=== PATIENT | female | born 1945 | race Caucasian/White ===

== ENCOUNTER 2017-01-13 08:13 | Day surgery (SDC) | payer OTHER, MEDICARE ==
[2017-01-10 17:06] VITALS: BMI 18.7
[2017-01-13] MEDS ORDERED: PROPOFOL 20 ML ONE (08:36)
[2017-01-13 10:23] VITALS: TEMP 98
[2017-01-13 11:14] VITALS: BP 107/64; PULSE 68
== END 2017-01-13 11:14 | disposition home or self-care (01) ==
LOC: FASU-ENDO 08:13
PROVIDERS: ATTEND Internal Medicine Gastroenterology
PROC: 0DJD8ZZ Inspection of Lower Intestinal Tract, Via Natural or Artificial Opening Endoscopic (ICD-10-PCS; principal; 2017-01-13 09:42)
DX: Z12.11 Encounter for screening for malignant neoplasm of colon (principal); K64.4 Residual hemorrhoidal skin tags; K64.8 Other hemorrhoids

== ENCOUNTER 2017-08-22 17:28 | Emergency (ER) | payer OTHER, MEDICARE ==
[2017-08-22 20:03] VITALS: BP 139/79; PULSE 75; TEMP 98.2; BMI 18.6
--- NOTE | 2017-08-22 21:34 | PDOC ---
History of Present Illness <Yobany Reina - Last Filed: 08/22/17 21:51> - History of Present Illness Initial Comments: This 72-year-old woman with a history of SVT( ablation 2013) but no other significant past medical history presents with episode of falling with head injury yesterday. At approximately 10:30 PM last night, patient was reading at her kitchen table when she fell asleep. She fell striking her forehead and face against the floor. She awakened immediately and her who was in the adjoining room was at her side immediately. There was no loss of consciousness or seizure activity/incontinence. Patient was able to get up and ambulate immediately. At the time, she had some discomfort in the right side of her forehead and she dislodged the near of her right upper central incisor. She is able to sleep normally overnight and this morning drove herself to the dentist for repair of the tooth. Throughout the day today, she had increased headache/pain in the area of her right forehead. No other associated symptoms of nausea/vomiting/lightheadedness/vision or balance problems occurred. <Isabelle Alexander - Last Filed: 08/23/17 03:13> - General Chief Complaint: Injury Stated Complaint: FELL OF CHAIR HIT HEAD Time Seen by Provider: 08/22/17 19:15 Past History <Yobany Reina - Last Filed: 08/22/17 21:51> - Past Medical History Anemia: No Asthma: No Cancer: No Cardiac Disorders: Yes (H/O SVT 2012) CVA: No COPD: No CHF: No Dementia: No Diabetes: No GI Disorders: No Disorders: No HTN: No Hypercholesterolemia: No Liver Disease: No Seizures: No Thyroid Disease: No - Surgical History Abdominal Surgery: No Appendectomy: No Cardiac Surgery: No (ABLATION 2013) Cholecystectomy: No Lung Surgery: No Neurologic Surgery: No Orthopedic Surgery: No - Immunization History Td Vaccination: No - Suicide/Smoking/Psychosocial Hx Smoking Status: No Smoking History: Never smoked Years of Tobacco Use: 0 Number of Cigarettes Smoked Daily: 0 Cigars Per Day: 0 Hx Alcohol Use: Yes Drug/Substance Use Hx: No Substance Use Type: Alcohol <Isabelle Alexander - Last Filed: 08/23/17 03:13> - Past Medical History Allergies/Adverse Reactions: Allergies Allergy/AdvReac Type Severity Reaction Status Date / Time No Known Allergies Allergy Verified 08/22/17 17:29 Home Medications: Ambulatory Orders Flecainide Acetate 50 mg PO BID tablet 07/12/15 Diltiazem Cd [Cardizem Cd -] 120 mg PO HS 01/10/17 Ibuprofen [Advil -] 400 mg PO PRN PRN 08/22/17 Review of Systems - Review of Systems Able to Perform ROS?: Yes Comments:: 12 point review of systems is negative except for what is noted in the history of present illness <Isabelle Alexander - Last Filed: 08/23/17 03:13> *Physical Exam - Vital Signs Last Vital Signs Temp Pulse Resp BP Pulse Ox 98.2 F 75 16 139/79 99 08/22/17 17:29 08/22/17 17:29 08/22/17 17:29 08/22/17 17:29 08/22/17 17:29 <Yobany Reina - Last Filed: 08/22/17 21:51> - Vital Signs Last Vital Signs Temp Pulse Resp BP Pulse Ox 98.2 F 75 16 139/79 99 08/22/17 17:29 08/22/17 17:29 08/22/17 17:29 08/22/17 17:29 08/22/17 17:29 - Physical Exam Comments: GENERAL:Adult female , alert and oriented X3 in NAD HEAD:moderate tenderness/moderate edema, faint ecchymosis 3 cm X 3 cm R frontal area EYES: PERRLA, EOMI, sclera anicteric, conjunctiva clear. ENT: nares patent, oropharynx clear without exudates. Temporary cap on upper central right incisor NECK: No masses, mild tenderness, no bruits . LUNGS: Breath sounds equal, clear to auscultation bilaterally. No wheezes, and no crackles. NEUROLOGICAL: Cranial nerves II through XII grossly intact. Normal speech. No focal neurological deficits. <Isabelle Alexander - Last Filed: 08/23/17 03:13> ED Treatment Course - RADIOLOGY Radiograph Interpretation: 08/22/17 21:51 EXAM: CT Cervical Spine INTERPRETED BY: Dr. Fernandes REVIEWED BY: Dr. Alexander IMPRESSION: 1. No evidence of acute fracture in the cervical spine. 2. Mild anterolisthesis at all levels from C5 on C6-T1 on T2 is presumably chronic and degenerative. 3. Cervical spondylosis. EXAM: CT Facial bones INTERPRETED BY: Dr. Fernandes REVIEWED BY: Dr. Alexander IMPRESSION: No evidence of acute facial bone fracture. Small soft tissue hematoma overlying the right frontal bone. EXAM: Head CT INTERPRETED BY: Dr. Fernandes REVIEWED BY: Dr. Alexander IMPRESSION: No evidence of acute intracranial hemorrhage or calvarial fracture. No mass effects or hydrocephalus. <Yobany Reina - Last Filed: 08/22/17 21:51> - RADIOLOGY Radiology Studies Ordered: Category Date Time Status CERVICAL SPINE CT W/O CONTR [CT] Stat CT Scan 08/22/17 19:[address] W/O CONTRAST [CT] Stat CT Scan 08/22/17 19:[address] WITHOUT CONTRAST [CT] Stat CT Scan 08/22/17 19:44 Completed <Isabelle Alexander - Last Filed: 08/23/17 03:13> Medical Decision Making - Medical Decision Making CT studies show no evidence of acute pathology as noted. Patient discharged with instructions to keep her head elevated and to use Tylenol for the next 24 hours. After that, she can use nonsteroidal anti- inflammatory medications as needed. She should follow up with Dr. Addison ; she should return to the emergency room if she has severe headache or develops associated symptoms. <Isabelle Alexander - Last Filed: 08/23/17 03:13> *DC/Admit/Observation/Transfer - Attestations Scribe Attestion: 08/22/17 21:52 Documentation prepared by Yobany Reina, acting as medical services manager for Isabelle Alexander MD. <Yobany Reina - Last Filed: 08/22/17 21:51> <Isabelle Alexander - Last Filed: 08/23/17 03:13> Diagnosis at time of Disposition: Forehead contusion Qualifiers: Encounter type: initial encounter Qualified Code(s): S00.83XA - Contusion of other part of head, initial encounter Closed head injury Qualifiers: Encounter type: initial encounter Qualified Code(s): S09.90XA - Unspecified injury of head, initial encounter - Discharge Dispostion Disposition: HOME Condition at time of disposition: Good - Patient Instructions Printed Discharge Instructions: DI for Closed Head Injury Additional Instructions: keep head elevated tonight can continue cold compresses to forehead for next day tylenol for pain for next day, then ibuprofen/naproxen as needed return to ER if you develop severe headache/lightheadedness/vomiting Follow-up with Dr. Addison within the next 5-7 days
== END 2017-08-22 21:45 | disposition home or self-care (01) ==
LOC: FER 17:28
DX: S00.83XA Contusion of other part of head, initial encounter (principal); S09.90XA Unspecified injury of head, initial encounter; W07.XXXA Fall from chair, initial encounter; Y93.89 Activity, other specified; Y92.9 Unspecified place or not applicable
CPT/HCPCS: 70450-TC; 70486-TC; 72125-TC; 99281-25

== ENCOUNTER 2020-03-24 15:50 | Emergency (ER) | payer OTHER, MEDICARE ==
--- OUTSIDE RECORDS SUMMARY | 2020-03-24 16:00 | XMS ---
:1945 Author Organization [facility] Care Team Providers Name Role Phone YEISON GLYNN Unavailable Unavailable AREN ENGEL Unavailable Unavailable Re-disclosure Warning The records that you are about to access may contain information from federally- assisted alcohol or drug abuse programs. If such information is present, then the following federally mandated warning applies: This information has been disclosed to you from records protected by federal confidentiality rules (42 CFR part 2). The federal rules prohibit you from making any further disclosure of this information unless further disclosure is expressly permitted by the written consent of the person to whom it pertains or as otherwise permitted by 42 CFR part 2. A general authorization for the release of medical or other information is NOT sufficient for this purpose. The Federal rules restrict any use of the information to criminally investigate or prosecute any alcohol or drug abuse patient.The records that you are about to access may contain highly sensitive health information, the redisclosure of which is protected by Article 27-F of the [facility] Public Health law. If you continue you may haveaccess to information: Regarding HIV / AIDS; Provided by facilities licensed or operated by the [facility] Office of Mental Health; or Provided by the [facility] Office for People With Developmental Disabilities. If such information is present, then the following [facility] mandated warning applies: This information has been disclosed to you from confidential records which are protected by state law. State law prohibits you from making any further disclosure of this information without the specific written consent of the person to whom it pertains, or as otherwise permitted by law. Any unauthorized further disclosure in violation of state law may result in a fine or skilled nursing sentence or both. A general authorization for the release of medical or other information is NOT sufficient authorization for further disclosure. Encounters Encounter Providers Location Date Indications Data Source(s ) Outpatient Attender: TORO 10/15/2019 I47.1 R07.9 Z01.84 [facility] HUMAYUNAdmitter: 04:03:00 PM [facility] [employer] HUMAYUNReferrer: AREN ENGEL I47.1 R07.9 Z01.84 Outpatient Attender: RENARD 10/15/[address] [facility] YEISONAdmitter: RENARD, 06:00:00 AM EDT [address] [facility] YEISONReferrer: Loretta GLYNN R07.9 I47.1 [id number] Insurance Providers Payer name Policy type Policy ID Covered Covered constitution party's Policy P angeline / Coverage constitution party ID relationship to [employer] Inf ormation type trimble [facility] [id number] SP [id number] [employer]ARE [employer] MEDICARE [id number] SP [id number] [facility] [id number] 1 [id number] [place] [id number] PART B DOWNSTATE AARP MEDICARE [id number] 1 [id number] SUPP[place] [id number] PART B [facility] [id number] PT [id number] [employer] MEDICARE [id number] PT [id number] Problems, Conditions, and Diagnoses Code Display Name Description Problem Type Effective Data Sour ce(s) Dates I47.1 Supraventricular SUPRAVENTRICULAR [facility] [place] [facility]03:[facility] I77.810 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
--- NOTE | 2020-03-24 17:00 | TELE ---
HPI Do you have fever,cough or shortness of breath?: Yes (74-year-old female presents via tele-health for COVID testing. Patient with low-grade temperature of 99.5 along with body aches, dry cough, and malaise for the past 2 days. Patient denies any recent sick contacts recent travel or smoking history. Patient denies medical history) - General Reason For Visit: COVID History Source: Patient Exam Limitations: No Limitations - History of Present Illness Severity: reports: mild Associated Symptoms: reports: cough, fever/chills, malaise, weakness Past History - Travel History Traveled outside of the country in the last 30 days: No Close contact w/someone who was outside of country & ill: No - Medical History Allergies/Adverse Reactions: Allergies Allergy/AdvReac Type Severity Reaction Status Date / Time No Known Allergies Allergy Verified 08/22/17 17:29 Home Medications: Ambulatory Orders Flecainide Acetate 50 mg PO BID tablet 07/12/15 Diltiazem Cd [Cardizem Cd -] 120 mg PO HS 01/10/17 Ibuprofen [Advil -] 400 mg PO PRN PRN 08/22/17 Anemia: No Asthma: No Cancer: No Cardiac Disorders: Yes (H/O SVT 2012) CVA: No COPD: No CHF: No Dementia: No Diabetes: No GI Disorders: No Disorders: No HTN: No Hypercholesterolemia: No Liver Disease: No Seizures: No Thyroid Disease: No - Surgical History Abdominal Surgery: No Appendectomy: No Cardiac Surgery: No (ABLATION 2013) Cholecystectomy: No Lung Surgery: No Neurologic Surgery: No Orthopedic Surgery: No - Immunization History Td Vaccination: No - Psycho-Social/Smoking History Patient Lives Alone: No Lives with/in: spouse/SO Smoking Status: No Smoking History: Never smoked Years of Tobacco Use: 0 Number of Cigarettes Smoked Daily: 0 Cigars Per Day: 0 Review of Systems - Review of Systems Able to Perform ROS?: No Limited Sudanese proficient: No Constitutional: No: Symptoms Reported Respiratory: Yes: Cough Cardiac (ROS): No: Symptoms Reported ABD/GI: No: Symptoms Reported Musculoskeletal: Yes: Joint Pain Integumentary: No: Symptoms Reported Neurological: Yes: Weakness *Physical Exam - Physical Exam General Appearance: Yes: Nourished, Appropriately Dressed. No: Apparent Distress HEENT: positive: EOMI Neck: negative: Decreased range of motion Respiratory/Chest: negative: Respiratory Distress Gastrointestinal/Abdominal: negative: Distended Integumentary: positive: Normal Color Neurologic: positive: Motor Strength 5/5 (Ambulatory) - Medical Decision Making 03/24/20 17:09Chief complaint: Patient requesting cover testing due to URI symptoms. Exam: Limited but otherwise normal Plan: COVID and influenza swab ordered Discharge Diagnosis at time of Disposition: Cough - Referrals Follow-up Referral(s): Juan Addison MD [Primary Care Provider] - - Patient Instructions - Discharge Disposition: HOME Condition at time of Disposition: Good
== END 2020-03-24 17:05 | disposition home or self-care (01) ==
LOC: JVIRT 15:50
DX: Z03.818 Encounter for observation for suspected exposure to other biological agents ruled out (principal)
CPT/HCPCS: 87804; C9803; Q3014-GT; U0003

== ENCOUNTER 2021-05-26 13:27 | Emergency (ER) | payer OTHER, MEDICARE ==
[2021-05-26 13:36] VITALS: TEMP 97.9; BMI 18.5
[2021-05-26] MEDS ORDERED: ONDANSETRON 4 MG/2 ML VIAL IVPUSH ONE (13:45)
[2021-05-26] MEDS ORDERED: SODIUM CHLORIDE 0.9% 500 ML INFUS.BAG IV ONE ×3 (13:45→18:06)
[2021-05-26] MEDS ORDERED: FAMOTIDINE 20 MG/50 ML IVPB 20 MG/50 ML MG IVPB ONE ×2 (13:45→13:50)
[2021-05-26] MEDS ORDERED: ONDANSETRON 4 MG/2 ML VIAL ONE (13:50)
[2021-05-26 14:46] LABS: ALBUMIN 4.5 g/dl (3.4-5.0); BILIRUBIN,TOTAL 1.6 mg/dl (0.2-1); CALCIUM 9.2 mg/dl (8.5-10); CREATININE 0.8 mg/dl (0.55-1.3); TOT PROT 7.8 g/dl (6.4-8.2)
[2021-05-26] MEDS ORDERED: ACETAMINOPHEN 1000 MG/100 ML VIAL IVPB ONE (15:26)
[2021-05-26] MEDS ORDERED: ACETAMINOPHEN INJECTION 100 ML IVPB ONE (15:36)
[2021-05-26 16:08] LABS: BASO % 0.2 % (0-2.0); EOS % 0.1 % (0-4.5); HEMATOCRIT 41.3 % (32.4-45.2); LYMPH % 2.4 % (8-40); MCH 32.4 pg (25.7-33.7); MEAN CELL VOLUME 95.3 fl (80-96); MEAN PLT VOLUME 8.8 fl (7.5-11.1); MONO % 2.8 % (3.8-10.2); NEUT % 94.5 % (42.8-82.8); PLATELET COUNT 187 10^3/uL (134-434); RBC 4.33 M/mm3 (3.60-5.2); RDW 13.8 % (11.6-15.6); WHITE BLOOD COUNT 7.9 K/mm3 (4.0-10.0)
[2021-05-26 16:49] LABS: ANISOCYTOSIS 1+; MACROCYTOSIS 0; PLATELET ESTIMATE NORMAL
[2021-05-26] MEDS ORDERED: SODIUM CHLORIDE 0.9% 1000 ML INFUS.BAG IV ONE ×2 (17:18→18:19)
[2021-05-26 18:29] VITALS: BP 140/86; PULSE 82
== END 2021-05-26 18:36 | disposition home or self-care (01) ==
LOC: FER 13:27
PROC: 3E0333Z Introduction of Anti-inflammatory into Peripheral Vein, Percutaneous Approach (ICD-10-PCS; principal; 2021-05-26)
PROC: 3E033GC Introduction of Other Therapeutic Substance into Peripheral Vein, Percutaneous Approach (ICD-10-PCS; 2021-05-26)
PROC: 3E033GC Introduction of Other Therapeutic Substance into Peripheral Vein, Percutaneous Approach (ICD-10-PCS; 2021-05-26)
DX: K56.7 Ileus, unspecified (principal)
CPT/HCPCS: 36415; 74176-TC; 80053; 81003; 81015; 82550; 83690; 84484; 85025; 87086; 93005; 99285-25; C9803; J0131; U0003; U0005

== ENCOUNTER 2022-03-10 12:13 | Emergency (ER) | payer OTHER, MEDICARE ==
[2022-03-10 12:19] VITALS: PULSE 89; TEMP 98; BMI 20.7
[2022-03-10] MEDS ORDERED: OXYMETAZOLINE 0.05% NASAL SOLUTION 15 ML BOTTLE NS ONE ×2 (12:32→12:33)
[2022-03-10 12:47] LABS: HEMATOCRIT 40.5 % (32.4-45.2); HEMOGLOBIN 14.4 G/dL (10.7-15.3); MCHC 35.6 g/dl (32.0-36.0); MEAN CELL VOLUME 95.5 fl (80-96); PLATELET COUNT 200.5 10^3/uL (134-434); RBC 4.24 10^6/uL (3.60-5.2); RDW 13.9 % (11.6-15.6); WHITE BLOOD COUNT 4.4 10^3/uL (4.0-10.8)
[2022-03-10 13:14] LABS: ALBUMIN 4.2 g/dl (3.4-5.0); BILIRUBIN,TOTAL 1.1 mg/dl (0.2-1); CALCIUM 9.5 mg/dl (8.5-10); TOT PROT 7.8 g/dl (6.4-8.2)
[2022-03-10 13:18] LABS: INR 0.94 (0.83-1.09); PROTHROMBIN TIME (PATIENT) 10.8 SEC (9.7-13.0)
[2022-03-10 13:30] LABS: PLATELET ESTIMATE ADEQUATE
[2022-03-10] MEDS ORDERED: ONDANSETRON 4 MG/2 ML VIAL ONE (14:33)
[2022-03-10 14:53] VITALS: BP 155/89; RESP 18
[2022-03-10] MEDS ORDERED: ONDANSETRON 4 MG/2 ML VIAL IVPB ONE (15:14)
== END 2022-03-10 15:00 | disposition home or self-care (01) ==
LOC: FER 12:13
PROC: 3E0333Z Introduction of Anti-inflammatory into Peripheral Vein, Percutaneous Approach (ICD-10-PCS; principal; 2022-03-10)
DX: R04.0 Epistaxis (principal)
CPT/HCPCS: 36415; 80053; 85027; 85610; 99284-25

== ENCOUNTER 2022-09-17 14:51 | Emergency (ER) | payer OTHER, MEDICARE ==
[2022-09-17 15:05] VITALS: BP 132/87; PULSE 85; RESP 16; TEMP 98.6
[2022-09-17] MEDS ORDERED: LIDOCAINE 5% TOPICAL PATCH TP ONE (15:11)
[2022-09-17] MEDS ORDERED: ALBUTEROL SO4 2.5/IPRATROPIUM 0.5 INH SOL 3 ML VIAL.NEB. NEB ONE ×2 (15:11→15:20)
[2022-09-17] MEDS ORDERED: KETOROLAC TROMETHAMINE 30 MG/1 ML VIAL IM ONE (15:11)
[2022-09-17] MEDS ORDERED: KETOROLAC TROMETHAMINE 30 MG/1 ML VIAL ONE (15:20)
[2022-09-17] MEDS ORDERED: LIDOCAINE 5% TOPICAL PATCH ONE (15:20)
== END 2022-09-17 17:17 | disposition home or self-care (01) ==
LOC: FER 14:51
PROC: 3E0F7GC Introduction of Other Therapeutic Substance into Respiratory Tract, Via Natural or Artificial Opening (ICD-10-PCS; principal; 2022-09-17)
DX: R07.89 Other chest pain (principal); R05.1 Acute cough
CPT/HCPCS: 71046-TC-FY; 99283-25

== ENCOUNTER 2023-11-27 16:06 | Emergency (ER) | payer OTHER, MEDICARE ==
[2023-11-27 16:20] VITALS: BP 149/100; PULSE 93; RESP 16; TEMP 97.5; BMI 20.7
== END 2023-11-27 19:17 | disposition home or self-care (01) ==
LOC: FER 16:06
DX: S02.2XXA Fracture of nasal bones, initial encounter for closed fracture (principal); W22.09XA Striking against other stationary object, initial encounter
CPT/HCPCS: 70450-TC; 70486-TC; 99284-25